=== PATIENT | female | born 1945 | race Caucasian/White ===

== ENCOUNTER 2020-03-21 02:34 | Emergency (ER) | payer BC ==
[~2020-03-21] VITALS: Ht 177.8 cm; Wt 75.0 kg
[~2020-03-21 02:34] MED LIST: CALC0.253 PO; CEFD300C3 PO; DONE10TA44 PO; FLUO40CA PO; LACT1CAP26 PO; LEVO50TA8 PO; LEVO5TAB13 PO; MONT10TA97 PO; OMEP-50 PO; OXYB5TAB16 PO; SIMV-45 PO
--- NOTE | 2020-03-21 04:15 | NUR ---
Assisted Dr. Cordova in inspecting patient's vaginal area. Pt was soiled with feces. Cleaned up patient. History of dimentia with cousin as resident program specialist who states patient doesn't always notify him when she has a BM. New bag attached to catheter as the one they came in with had a hole in it. Patient only painful if catheter is pulled. New fasening device applied.
[2020-03-21 04:24] VITALS: BP 146/77
== END 2020-03-21 04:26 | disposition home or self-care (01) ==
LOC: ER 02:35
DX: T83.091A Other mechanical complication of indwelling urethral catheter, initial encounter (principal); N89.8 Other specified noninflammatory disorders of vagina; R31.9 Hematuria, unspecified; I10 Essential (primary) hypertension; Z87.442 Personal history of urinary calculi; Z87.440 Personal history of urinary (tract) infections; Z79.2 Long term (current) use of antibiotics; Z79.899 Other long term (current) drug therapy; X58.XXXA Exposure to other specified factors, initial encounter; Y93.89 Activity, other specified; Y92.89 Other specified places as the place of occurrence of the external cause; Y99.8 Other external cause status
CPT/HCPCS: 99281